=== PATIENT | male | born 1945 | race Caucasian/White ===

== ENCOUNTER 2018-10-11 09:45 | Inpatient (IN) ==
--- NOTE | 2018-09-18 12:19 | Anesthesiology Consultation ---
Date of Service September 18, 2018 Assessment & Plan (1) Encounter for pre-operative examination: Chart Review Chart Review: Acceptable Risk for Surgery and Patient seen in Pre Admission Testing Teaching & Discussion Pre-Anesthesia Teaching/Discussion Notes: Instructed NPO after midnight before surgery,except medications with 15 cc of water. Medication instructions provided according to the PAT guidelines. History Surgery Operation Date: 10/11/18 12:50 Proposed Procedures p Total Shoulder Arthroplasty Ken - Kirit Linares, Height/Weight Height: 5 ft 9 in Weight: 114.8 kg Allergies Allergy/AdvReac Type Severity Reaction Status Date / Time adhesive AdvReac Unknown BLISTERS Verified 09/12/18 15:07 lisinopril AdvReac Unknown COUGH Verified 09/12/18 15:07 Medications Home Medications Medication Instructions Recorded Confirmed Last Taken Indocin 50 mg PO UD PRN 09/12/18 09/12/18 Unknown allopurinol 300 mg PO QAM 09/12/18 09/12/18 Unknown cholecalciferol (vitamin D3) 5,000 unit PO QAM 09/12/18 09/12/18 Unknown [Vitamin D3] diltiazem HCl 360 mg PO QAM 09/12/18 09/12/18 Unknown finasteride 5 mg PO HS 09/12/18 09/12/18 Unknown hydrochlorothiazide 25 mg PO QAM 09/12/18 09/12/18 Unknown losartan 100 mg PO HS 09/12/18 09/12/18 Unknown multivitamin 1 tab PO QAM 09/12/18 09/12/18 Unknown pravastatin 40 mg PO HS 09/12/18 09/12/18 Unknown tamsulosin 0.4 mg PO BID 09/12/18 09/12/18 Unknown Past Medical History Medical History Asthma STABLE BPH (benign prostatic hyperplasia) Diverticular disease Gout Hyperlipidemia Hypertension Obesity Osteoarthritis Sleep apnea CPAP Past Family History Family History Father Family hx of colon cancer Past Surgical History Surgical History History of cataract surgery B/L History of colectomy 11/09 COLONOSCOPY PERFORATION History of colonoscopy History of colostomy reversal History of herniorrhaphy INCISIONAL Hx of shoulder surgery RIGHT Past Anesthesia History No Hx of Anesthesia Complications and No Family Hx of Anesthesia Complications History of PONV No Motion Sickness Screening History of Motion Sickness: No Social History Smoking Status: Former smoker Do You Dip or Chew Tobacco: No Smoking End Date: QUIT 45 YRS AGO; <1 PPD X 10 YEARS Hx Alcohol Use: Yes Alcohol type: beer alcohol intake frequency: 0-2 drinks per day Hx Substance Use: No Exercise / Class Metabolic Activity II 4-5 Yardwork/Stairs/Walk up hill Review of Systems Patient reports shoulder pain. Patient denies chest pain, shortness of breath, dyspnea on exertion, reflux, cough, wheezing, palpitations. Physical Exam Vital Signs VITALS BP 129/71 P 63 TEMP 98.1 RESP 18 SP02 97%RA Full neck and c-spine range of motion. Full TMJ range of motion. TMD 3 finger breaths Mallampati Score 2 Dentition: intact, crowns on lower sides Lungs: clear throughout to auscultation Cardiac: regular rate and rhythm, no murmurs noted Spine: normal Carotid arteries: negative bruit Extremities: no edema Trimmed howell Testing Electrocardiogram Date: 09/18/18 Findings: + SB @ (57) Chest X-Ray Date: 09/18/18 Findings: + NAD Laboratory Results 09/18/18 12:25 09/18/18 12:25 Blood Type A Positive 09/18/18 12:25 Antibody Screen NEGATIVE 09/18/18 12:25 PT 10.5 Seconds (9.0-12.0) 09/18/18 12:25 INR 1.0 (0.9-1.1) 09/18/18 12:25 APTT 26.4 Seconds (21.0-31.0) 09/18/18 12:25
--- NOTE | 2018-09-18 12:22 | PAT Medication Instructions ---
Medication Instructions Date of Service September 18, 2018 Home Medications Indocin 50 mg PO UD PRN allopurinol 300 mg PO QAM cholecalciferol (vitamin D3) 5,000 unit PO QAM diltiazem HCl 360 mg PO QAM finasteride 5 mg PO HS hydrochlorothiazide 25 mg PO QAM losartan 100 mg PO HS multivitami 1 tab PO QAM pravastatin 40 mg PO HS tamsulosin 0.4 mg PO BID ASK your surgeon for instructions Indocin 50 mg PO UD PRN DO NOT take the morning of surgery cholecalciferol (vitamin D3) 5,000 unit PO QAM hydrochlorothiazide 25 mg PO QAM multivitami 1 tab PO QAM Take morning of surgery With a small sip of water, OTHERWISE NOTHING TO EAT OR DRINK AFTER MIDNIGHT: allopurinol 300 mg PO QAM diltiazem HCl 360 mg PO QAM tamsulosin 0.4 mg PO BID Take evening before surgery finasteride 5 mg PO HS losartan 100 mg PO HS pravastatin 40 mg PO HS tamsulosin 0.4 mg PO BID Other Notes If you have any questions please call us at [phone] or [phone] or [phone] or [phone]
--- NOTE | 2018-09-18 12:50 | XRay Report ---
XR chest Pre-admission PA/Lat CLINICAL HISTORY: pat preoperative evaluation COMPARISON STUDY: No previous studies for comparison. FINDINGS: The bones soft tissues and hemidiaphragms are normal. The cardiomediastinal silhouette is n ormal. The lungs are clear. The pulmonary vasculature is normal. IMPRESSION: Negative chest. The above report was generated using voice recognition software. It may contain grammatical, syntax or spelling errors. Electronically signed by: Geremias Price M.D. 09/18/2018 12:49 PM
[2018-09-18 13:06] LABS: Basophils # (auto) 0.03 K/uL (0-0.2); Basophils % (auto) 0.4 %; Eosinophils # (auto) 0.15 K/uL (0-0.5); Eosinophils % (auto) 1.9 %; Hematocrit (blood only) 40.4 % (42-52); Hemoglobin 13.4 g/dL (14.0-18.0); Immature Granulocytes # (auto) 0.03 K/uL (0.00-0.02); Immature Granulocytes % (auto) 0.4 %; Lymphocytes # (auto) 2.12 K/uL (1.2-3.4); Lymphocytes % (auto) 26.3 %; Mean Corpuscular Hgb Conc 33.2 g/dL (32-36); Mean Corpuscular Volume 87.1 fL (80-100); Mean Platelet Volume 10.8 fL (7.4-10.4); Monocytes % (auto) 7.5 %; Neutrophils # (auto) 5.12 K/uL (1.4-6.5); Neutrophils % (auto) 63.5 %; Platelet Count 223 K/uL (130-400); RDW Coefficient of Variation 14.1 % (11.5-14.5); RDW Standard Deviation 44.3 fL (36.4-46.3); Red Blood Count 4.64 M/uL (4.7-6.1); White Blood Count 8.05 K/uL (4.8-10.8)
[2018-09-18 13:22] LABS: BUN Creatinine Ratio 24.6 (10-20); Calcium 9.8 mg/dl (8.5-10.1); Creatinine Clr Calc Pharmacy 62.3 ml/min; Est GFR (African American) 60.9; Est GFR (Non-African American) 52.6
[2018-09-18 13:24] LABS: Partial Thromboplastin Time 26.4 Seconds (21.0-31.0); Prothrombin Time 10.5 Seconds (9.0-12.0)
--- NOTE | 2018-10-10 15:53 | History & Physical Report ---
Date of Service October 10, 2018 Assessment & Plan (1) Rotator cuff arthropathy of left shoulder: We will proceed with a left reverse shoulder arthroplasty. Postoperatively he will be placed in a sling and kept overnight for postop medical management. He plans to use outpatient physical therapy at [facility] upon discharge. Present on Admission?: Yes History of Present Illness Chief Complaint: Rotator cuff arthropathy of the left shoulder Primary Care Provider: Chandu Ruchi Rivera is a pleasant 73-year-old male who has come been complaining of a 3-month history of increasing left shoulder pain. He does not recall any traumatic events. It hurts him at night and it hurts when he does anything away from his body. On physical examination I was concerned for rotator cuff tear so I sent him for an MRI. The MRI showed a large retracted rotator cuff tear past the level of the glenoid. He also had some moderate glenohumeral arthritis. After discussions in the office he has elected proceed with a left reverse shoulder arthroplasty. Allergies Allergy/AdvReac Type Severity Reaction Status Date / Time adhesive AdvReac Unknown BLISTERS Verified 09/12/18 15:07 lisinopril AdvReac Unknown COUGH Verified 09/12/18 15:07 Home Medications Home Medications Medication Instructions Recorded Confirmed Type Indocin 50 mg PO UD PRN 09/12/18 09/12/18 History allopurinol 300 mg PO QAM 09/12/18 09/12/18 History cholecalciferol (vitamin D3) 5,000 unit PO QAM 09/12/18 09/12/18 History [Vitamin D3] diltiazem HCl 360 mg PO QAM 09/12/18 09/12/18 History finasteride 5 mg PO HS 09/12/18 09/12/18 History hydrochlorothiazide 25 mg PO QAM 09/12/18 09/12/18 History losartan 100 mg PO HS 09/12/18 09/12/18 History multivitamin 1 tab PO QAM 09/12/18 09/12/18 History pravastatin 40 mg PO HS 09/12/18 09/12/18 History tamsulosin 0.4 mg PO BID 09/12/18 09/12/18 History Past Med/Surg History Medical History Asthma STABLE BPH (benign prostatic hyperplasia) Diverticular disease Gout Hyperlipidemia Hypertension Obesity Osteoarthritis Sleep apnea CPAP Surgical History History of cataract surgery B/L History of colectomy 11/09 COLONOSCOPY PERFORATION History of colonoscopy History of colostomy reversal History of herniorrhaphy INCISIONAL Hx of shoulder surgery RIGHT Family History Father Family hx of colon cancer Social History Current Living Situation: Spouse Other Information That Helps Us Care for You: No Feels Safe at Home: Yes Safety Concerns: Feels Safe At This Time Smoking Status: Former smoker Do You Dip or Chew Tobacco: No Smoking End Date: QUIT 45 YRS AGO; <1 PPD X 10 YEARS Hx Alcohol Use: Yes Alcohol type: beer Alcohol Intake Frequency: 0-2 drinks per day Hx Substance Use: No Beliefs That Will Affect Care: None Preferred Language: Tuvaluan Communication Ability: Effective Educator Senior Clinical Required: No
[~2018-10-11 09:45] MED LIST: ACETAMINOPHEN 500 MG TAB PO SCH; CEFAZOLIN 2000MG 2,000 MG/15 ML SYR IV SCH; FAMOTIDINE 20 MG TAB PO SCH; GABAPENTIN 300 MG PO SCH; LR 15ML/HR IV SCH; LR 60ML/HR IV SCH; ROPIVACAINE 0.5% 5 MG/ML 30 ML VIAL ONE; ROPIVACAINE 0.5% HCL/PF 150 MG, BUPIVACAINE 0.5% MPF 30 ML, EPINEPHrine 30MG/30ML (OR U... INFIL SCH; TRANEXAMIC ACID 1,000 MG **IV Intra-op IV SCH; TRANEXAMIC ACID 1,000 MG **IV Pre-op IV SCH
[2018-10-11] MEDS ORDERED: KETAMINE HCL INJ 50 MG/ML 10 ML VIAL ONE (10:49)
[2018-10-11] MEDS ORDERED: MIDAZOLAM HCL 1 MG/ML 2ML VIAL ONE (10:49)
--- NOTE | 2018-10-11 11:01 | History & Physical Bridge Note ---
Date of Service October 11, 2018 History & Physical Bridge Note I have examined the patient, reviewed the History & Physical and in the interval since the performance of the History & Physical I have noted the following changes of clinical significance: no changes noted
[2018-10-11] MEDS ORDERED: ORTHO JOINT ANESTHETIC ONE (11:23)
[2018-10-11] MEDS ORDERED: POVIDONE-IODINE OP SOLN 30 ML BTL ONE (11:23)
[2018-10-11] MEDS ORDERED: ePHEDrine sulfate 50 MG/ML AMP IV PRN (11:29)
[2018-10-11] MEDS ORDERED: HYDROmorphone INJ 1 MG/ML SYRINGE IV PRN (11:29)
[2018-10-11] MEDS ORDERED: ATROPINE SULFATE 0.1 MG/ML 10ML SYR IV PRN (11:29)
[2018-10-11] MEDS ORDERED: ONDANSETRON INJ 2 MG/ML 2 ML VIAL IV PRN ×2 (11:29→15:48)
[2018-10-11] MEDS ORDERED: fentaNYL citrate 100 MCG/2 ML VIAL IV PRN (11:29)
[2018-10-11] MEDS ORDERED: ROCURONIUM BROMIDE 10 MG/ML 5 ML VIAL ONE (12:39)
[2018-10-11] MEDS ORDERED: ONDANSETRON INJ 2 MG/ML 2 ML VIAL ONE (12:39)
[2018-10-11] MEDS ORDERED: GLYCOPYRROLATE 0.2 MG/ML VIAL ONE (12:39)
[2018-10-11] MEDS ORDERED: LIDOCAINE HCL 2% 2 ML VIAL/AMP(20MG/ML) INFIL ONE (12:39)
[2018-10-11] MEDS ORDERED: PROPOFOL IV EMULSION 10 MG/ML 20 ML VIAL IV ONE (12:39)
--- NOTE | 2018-10-11 14:07 | Operative Report ---
Post Operative Report Pre & Post Diagnosis Operation Date: 10/11/18 12:30 Pre-Op Diagnosis: Chronic Rotator Cuff Tear with moderate glenohumeral arthritis left Shoulder Post-Op Diagnosis: Chronic Rotator Cuff Tear with moderate glenohumeral arthritis left Shoulder Procedure Operation Date: 10/11/18 12:30 Actual Procedures p Left Reverse Total Shoulder Arthroplasty(Left) - Kirit Linares DO Surgeon Kirit Linares DO Business Area Director Kirit Alonzo PAC Estimated Blood Loss 250 Findings Consistent with Post-Op Diagnosis Specimens Left humeral head Complications none Disposition Disposition: Recovery Room Indications Miguel is a pleasant 73-year-old male who presented my office with increasing left shoulder pain and weakness. MRI and clinical examination were diagnostic for rotator cuff arthropathy and a irrepairable rotator cuff tear of the left shoulder. After failing conservative treatment, he elected to proceed with reverse shoulder arthroplasty. Description of Procedure Implants used: I used a [employer] Comprehensive reverse total shoulder arthroplasty system with a size 13 press fit mini humeral stem, a standard humeral tray and a standard humeral bearing, a standard baseplate with a 6.5 mm central screw and superior and inferior locking screws, and a size 41 mm eccentric glenosphere. The patient arrived at [facility] for the above procedure. There were seen in the preoperative holding area and the operative extremity was identified and signed. They were given a preoperative antibiotic and an interscalene nerve block. They were taken back to the operating room, laid on table in supine position, and put under general anesthesia. They were then put into the beachchair position. The shoulder was then prepped and draped in sterile fashion. A timeout was done and the patient in the operative extremity was properly identified. A deltopectoral approach was used. Dissection was taken down through the fascia and the deltoid was retracted laterally and the conjoined tendon was retracted medially. The anterior shoulder was exposed. The long head of the biceps tendon was tenodesed to the upper border of the pectoralis major. The subscapularis was then released off the lesser tuberosity with a centimeter of cuff tissue remaining. The inferior capsule was released and the humeral head was dislocated. A canal finding reamer was sent down the center of the humeral canal. Sequential reaming up to a size 13 reamer was done. Off that reamer, a proximal humeral resection guide was placed. The proximal humerus was resected at 135 of inclination and 25 of retroversion. Osteophytes were then removed and the glenoid was exposed. Time was spent doing a complete capsular and labral release. The glenoid guide was then placed in the inferior aspect of the glenoid. A 3.2 mm Steinmann pin was then placed into the glenoid vault at 10 of inclination. The glenoid baseplate was then reamed. The final size standard baseplate was then impacted in the place. A 6.5 mm central screw was then placed followed by superior and inferior locking screws. A 41 mm eccentric glenoid sphere was then impacted into place. Surrounding soft tissues were then injected with 100 cc an orthopedic pain control cocktail. The proximal humerus was then exposed. Sequential broaching of the humerus up to a size 13 broach was done. Off that broach a standard humeral tray was trialed. The shoulder was then reduced , brought through a full range of motion and felt to be stable. The shoulder was then dislocated and the broach was removed. The final size 13 mini press- fit humeral stem was then impacted into place. A standard humeral bearing was then snapped onto a standard humeral tray and the ring-lock mechanism was engaged. The humeral tray was then impacted onto the humeral stem. The shoulder was once again reduced, brought through a full range of motion and felt to be stable. The subscapularis was then tenodesed back to the lesser tuberosity with transosseous FiberWire sutures and side to side sutures with the arm in 45 of external rotation. The joint was then irrigated with 3 L of normal saline solution with bacitracin. Hemostasis was obtained. The skin was then closed with 2-0 Vicryl, 3-0V lock suture, and lex. A soft dressing and a regular arm sling was placed. The patient was then extubated and transferred to a hospital bed. They were taken to the postanesthesia care unit in stable condition. They tolerated the procedure well. I attest to the content of the Intraoperative Record and any orders documented therein. Any exceptions are noted below.
--- NOTE | 2018-10-11 14:49 | XRay Report ---
XR shoulder LT min 2V routine HISTORY: 73 years-old Male Post shoulder surgery left shoulder total joint arthroplasty. History of degenerative joint disease. COMPARISON: Left shoulder radiographs 09/03/2018 TECHNIQUE: 2 views of left shoulder FINDINGS: Postoperative changes compatible with recent reverse total joint arthroplasty of the left shoulder. A lignment appears satisfactory. Overlying skin lex are noted along with expected postsurgical soft tissue swelling and deep tissue air. Moderate degenerative changes about the AC joint. No opaque for eign body IMPRESSION: Reverse total joint arthroplasty of the left shoulder with satisfactory alignment. The above report was generated using voice recognition software. It may contain grammatical, syntax o r spelling errors. Electronically signed by: Bobo Zamora M.D. 10/11/2018 2:48 PM
--- NOTE | 2018-10-11 15:23 | Anesthesiology Progress Note ---
Date of Service October 11, 2018 Anesthesia Post Procedure Vital Signs Vital Signs: Temp Pulse Pulse Resp BP Pulse Ox 10/11/18 15:15 60 15 133/65 99 10/11/18 15:05 63 19 138/67 96 10/11/18 14:55 36.2 C L 68 13 133/66 97 10/11/18 14:45 68 14 131/77 97 10/11/18 14:35 74 20 126/61 99 10/11/18 14:27 36 C L 63 17 127/63 97 10/11/18 10:10 36.5 C 68 18 197/87 H 95 Pain Intensity Left Shoulder: Pain Intensity: 3 Notes Mental Status: alert / awake / arousable and participated in evaluation Patient Amnestic to Procedure: Yes Nausea / Vomiting: adequately controlled Pain: adequately controlled Airway Patency, RR, SpO2: stable & adequate BP & HR: stable & adequate Hydration State: stable & adequate Anesthetic Complications: no major complications apparent and Pt Satisfied with anesthetic care
[2018-10-11] MEDS ORDERED: NALOXONE HCL 0.4 MG/1 ML VIAL/CARP IV PRN (15:48)
[2018-10-11] MEDS ORDERED: POLYETHYLENE (MIRALAX) 17 GM PACK PO PRN (15:48)
[2018-10-11] MEDS ORDERED: MAGNESIUM HYDROXIDE SUSP 30 ML UDC PO PRN (15:48)
[2018-10-11] MEDS ORDERED: BISACODYL 10 MG SUPP PR PRN (15:48)
[2018-10-11] MEDS ORDERED: MoRPHine SULFATE 2 MG/ML CARP IV PRN (15:48)
[2018-10-11] MEDS ORDERED: METOCLOPRAMIDE HCL INJ 5 MG/ML 2 ML VIAL IV PRN (15:48)
[2018-10-11] MEDS ORDERED: OXYCODONE HCL IR 5 MG TAB (IMMEDIATE RELEASE) PO PRN (15:48)
[2018-10-11] MEDS: POTASSIUM CHLORIDE 10 MEQ in SODIUM CHLORIDE 0.9% 1000ML 1,000 ML IV SCH (17:22)
[2018-10-11] MEDS: KETOROLAC TROMETHAMINE 15 MG/ML VIAL IV SCH ×2 (17:26→23:53)
[2018-10-11] MEDS: CEFAZOLIN 2000MG 2,000 MG/15 ML SYR IV SCH (19:56)
[2018-10-11] MEDS: DOCUSATE SODIUM 100 MG CAP PO SCH (20:53)
[2018-10-11] MEDS: TAMSULOSIN HCL 0.4 MG CAP PO SCH (20:55)
[2018-10-11] MEDS ORDERED: FINASTERIDE 5 MG TAB PO SCH (21:00)
[2018-10-11] MEDS ORDERED: LOSARTAN POTASSIUM 50 MG TAB PO SCH (21:00)
[2018-10-11] MEDS ORDERED: SENNA 8.6 MG TAB PO SCH (21:00)
[2018-10-11] MEDS ORDERED: PRAVASTATIN SOD 40 MG TAB PO SCH (21:00)
[2018-10-11] MEDS: ACETAMINOPHEN 500 MG TAB PO SCH (21:41)
[2018-10-12] MEDS: CEFAZOLIN 2000MG 2,000 MG/15 ML SYR IV SCH (03:33)
[2018-10-12] MEDS: POTASSIUM CHLORIDE 10 MEQ in SODIUM CHLORIDE 0.9% 1000ML 1,000 ML IV SCH (03:33)
[2018-10-12] MEDS: ACETAMINOPHEN 500 MG TAB PO SCH (05:46)
[2018-10-12] MEDS: KETOROLAC TROMETHAMINE 15 MG/ML VIAL IV SCH ×2 (05:46→11:18)
[2018-10-12 05:59] LABS: Basophils # (auto) 0.01 K/uL (0-0.2); Basophils % (auto) 0.1 %; Hematocrit (blood only) 34.1 % (42-52); Hemoglobin 11.3 g/dL (14.0-18.0); Immature Granulocytes # (auto) 0.05 K/uL (0.00-0.02); Immature Granulocytes % (auto) 0.4 %; Lymphocytes # (auto) 1.17 K/uL (1.2-3.4); Lymphocytes % (auto) 8.9 %; Mean Corpuscular Hgb Conc 33.1 g/dL (32-36); Mean Corpuscular Volume 88.1 fL (80-100); Mean Platelet Volume 10.4 fL (7.4-10.4); Monocytes # (auto) 0.82 K/uL (0.11-0.59); Monocytes % (auto) 6.2 %; Neutrophils # (auto) 11.11 K/uL (1.4-6.5); Neutrophils % (auto) 84.4 %; Platelet Count 193 K/uL (130-400); RDW Coefficient of Variation 13.8 % (11.5-14.5); RDW Standard Deviation 44.8 fL (36.4-46.3); Red Blood Count 3.87 M/uL (4.7-6.1); White Blood Count 13.16 K/uL (4.8-10.8)
[2018-10-12 06:21] LABS: BUN Creatinine Ratio 19.8 (10-20); Calcium 8.9 mg/dl (8.5-10.1); Creatinine Clr Calc Pharmacy 54.3 ml/min; Est GFR (African American) 51.9; Est GFR (Non-African American) 44.8; Potassium 4.5 mmol/L (3.5-5.1)
--- NOTE | 2018-10-12 08:43 | Orthopedic Progress Note ---
Date of Service October 12, 2018 Assessment & Plan (1) Rotator cuff arthropathy of left shoulder: Overall he is doing very well. He is not having much pain in the shoulder. He will be seen by physical therapy this morning. He can be discharged home later this morning with outpatient physical therapy in [facility]. Present on Admission?: Yes Subjective Miguel was seen and examined at bedside this morning. Overall he is doing very well. Is not having much pain in the shoulder. He was able to get some sleep last night. He has no complaints. Physical Exam 2 Vital Signs (Past 24 Hours): Last Vital Signs Temp 36.5 C 10/12/18 07:20 Pulse 67 10/12/18 07:20 Resp 20 10/12/18 07:20 BP 154/74 H 10/12/18 08:30 Pulse Ox 95 10/12/18 07:20 Musculoskeletal: On physical examination of the left shoulder, the dressing is clean and dry. His radial median and ulnar nerves were checked and intact his wrist. He is wearing a sling as instructed. Results & Data Laboratory Results H & H 09/18/18 10/12/18 Range/Units 12:25 05:09 Hgb 13.4 L 11.3 L (14.0-18.0) g/dL Hct 40.4 L 34.1 L (42-52) % Coagulation 09/18/18 Range/Units 12:25 INR 1.0 (0.9-1.1) Diagnostic Findings Postoperative x-rays of the left shoulder show the prosthesis to be in anatomic alignment without any evidence of fracture, dislocation, or loosening.
--- NOTE | 2018-10-12 08:44 | Discharge Summary ---
Date of Service October 12, 2018 Admission HPI Per Admitting Provider Miguel is a pleasant 73-year-old male who has come been complaining of a 3-month history of increasing left shoulder pain. He does not recall any traumatic events. It hurts him at night and it hurts when he does anything away from his body. On physical examination I was concerned for rotator cuff tear so I sent him for an MRI. The MRI showed a large retracted rotator cuff tear past the level of the glenoid. He also had some moderate glenohumeral arthritis. After discussions in the office he has elected proceed with a left reverse shoulder arthroplasty. Specialty Data Orthopedic H & H 09/18/18 10/12/18 Range/Units 12:25 05:09 Hgb 13.4 L 11.3 L (14.0-18.0) g/dL Hct 40.4 L 34.1 L (42-52) % Coagulation 09/18/18 Range/Units 12:25 INR 1.0 (0.9-1.1) Discharge Data Consultations 10/11/18 15:48 Consult Case Management - Discharge Planning Routine Procedures Performed Operation Date: 10/11/18 12:30 Actual Procedures p Left Reverse Total Shoulder Arthroplasty(Left) - Kirit Linares DO Hospital Course (1) Rotator cuff arthropathy of left shoulder: On October 11, 2018 Miguel arrived at [facility] and underwent a left reverse shoulder arthroplasty without complication. He had a general anesthetic and a left interscalene nerve block. Postoperatively he was placed in an arm sling and discharged to general orthopedic floors. His hospital course is uneventful. On postop day #1 his H&H was stable and his pain was well controlled. He is able to participate well with physical therapy. He was discharged to home with outpatient physical therapy and [place]. He will follow-up with orthopedics in 2 weeks. Discharge Instructions Home Medications Medication Instructions Recorded Confirmed Indocin 50 mg PO UD PRN 09/12/18 10/11/18 allopurinol 300 mg PO QAM 09/12/18 10/11/18 cholecalciferol (vitamin D3) 5,000 unit PO QAM 09/12/18 10/11/18 [Vitamin D3] diltiazem HCl 360 mg PO QAM 09/12/18 10/11/18 finasteride 5 mg PO HS 09/12/18 10/11/18 hydrochlorothiazide 25 mg PO QAM 09/12/18 10/11/18 losartan 100 mg PO HS 09/12/18 10/11/18 multivitamin 1 tab PO QAM 09/12/18 10/11/18 pravastatin 40 mg PO HS 09/12/18 10/11/18 tamsulosin 0.4 mg PO BID 09/12/18 10/11/18 Previous Rx's Medication Instructions Recorded oxycodone 5 - 10 mg PO Q4H PRN #40 tab 10/12/18
[2018-10-12] MEDS ORDERED: dilTIAZem HCL 180 MG CAPCR PO SCH (09:00)
[2018-10-12] MEDS ORDERED: ALLOPURINOL 300 MG TAB PO SCH (09:00)
[2018-10-12] MEDS ORDERED: MULTIVITAMIN TAB PO SCH (09:00)
[2018-10-12] MEDS ORDERED: hydroCHLOROthiazide 25 MG TAB PO SCH (09:00)
[2018-10-12] MEDS: DOCUSATE SODIUM 100 MG CAP PO SCH (09:08)
[2018-10-12] MEDS: TAMSULOSIN HCL 0.4 MG CAP PO SCH (09:08)
--- NOTE | 2018-10-12 10:08 | Anesthesiology Progress Note ---
Date of Service October 12, 2018 Anesthesia Post Procedure Vital Signs Vital Signs: Temp Pulse Pulse Resp BP Pulse Ox 10/12/18 08:30 154/74 H 10/12/18 07:20 36.5 C 67 20 183/74 H 95 10/12/18 03:20 36.7 C 68 16 163/80 H 94 10/11/18 23:11 36.6 C 59 L 16 168/71 H 94 10/11/18 18:18 36.5 C 75 16 136/73 94 10/11/18 17:29 36.4 C L 55 L 16 160/78 H 97 10/11/18 16:30 36.4 C L 62 17 150/75 H 98 10/11/18 15:59 36.4 C L 60 17 139/80 96 10/11/18 15:15 60 15 133/65 99 10/11/18 15:05 63 19 138/67 96 10/11/18 14:55 36.2 C L 68 13 133/66 97 10/11/18 14:45 68 14 131/77 97 10/11/18 14:35 74 20 126/61 99 10/11/18 14:27 36 C L 63 17 127/63 97 10/11/18 10:10 36.5 C 68 18 197/87 H 95 Pain Intensity Left Shoulder: Pain Intensity: 1 Notes Mental Status: alert / awake / arousable Patient Amnestic to Procedure: Yes Nausea / Vomiting: adequately controlled Pain: adequately controlled Airway Patency, RR, SpO2: stable & adequate BP & HR: stable & adequate Hydration State: stable & adequate
== END 2018-10-12 11:45 | disposition home or self-care (01) | DRG 483 ==
LOC: ASU 09:45 → 3E 14:11